=== PATIENT | female | born 1945 | race Caucasian/White ===

== ENCOUNTER 2023-10-23 18:30 | Emergency (ER) | payer MEDICARE, SELFPAY ==
[2023-10-23] VITALS (7 sets, daily range): BP systolic 131–159; BP diastolic 63–86; BMI 20.3
[2023-10-23 18:54] LABS: % Basophils 0.7 % (0-2); % Eosinophils 2.7 % (0-6); % Immature Granulocytes 0.1 % (0-0.5); % Lymphocytes 29.5 % (20.5-51.1); % Monocytes 6.8 % (1.7-9.3); % Neutrophils 60.2 % (42.2-75.2); Absolute Basophils 0.1 10^3/uL (0-0.2); Absolute Eosinophils 0.2 10^3/uL (0-0.7); Absolute Lymphocytes 2.5 10^3/uL (1.2-3.4); Absolute Monocytes 0.6 10^3/uL (0.1-0.6); Absolute Neutrophils 5.1 10^3/uL (1.4-6.5); Hematocrit 35.5 % (37.0-47.0); Hemoglobin 11.4 g/dL (12.0-16.0); Mean Corp Hgb Conc. 32.1 g/dL (33.0-37.0); Mean Corpuscular Hgb 28.7 pg (27.0-31.0); Mean Corpuscular Volume 89.4 fL (81.0-99.0); Mean Platelet Volume 9.3 fL (7.4-10.4); Nucleated Red Blood Cells % 0 %; Platelet Count 288 10^3/uL (130-400); Red Blood Cell Count 3.97 10^6/uL (4.20-5.40); Red Cell Dist. Width 16.7 % (11.5-14.5); White Blood Cell Count 8.4 10^3/uL (4.8-10.8)
--- NOTE | 2023-10-23 19:06 | ED.GENMED ---
History of Present Illness
General
Chief Complaint: Change Level of Consciousness
Source: patient
Exam Limitations: none
Time Seen by Provider: 10/23/23 18:34
Nursing documentation reviewed up to this point in time: agreed with
Travel History
Have you had any contact with someone who has COVID-19?: No
Do you have any symptoms of coronavirus? Fever > 100 degrees, chills, cough, shortness of breath, sore throat, loss of taste or smell, muscle aches, or headache?: No
History of Present Illness
History of Present Illness:
77year-old female from [facility], she was in the dinner line standing or it was hot felt flushed and hot passed out struck her head aids took her to her room she is passed out again, no chest pain or shortness of breath, no abdominal pain no
nausea no vomiting no diarrhea, she states she has passed out previously due to low blood pressure, she did strike her head, no alcohol use no blood thinners
Past History
Past History
ED Past Medical History: HTN and Hypothyroidism
ED Past Surgical History: Orthopedic
Social History
Tobacco: Non-smoker
Alcohol: None
Drug: None
Living: assisted living
Employment: Retired
Review of Systems
Review of Systems
All Other Systems: Not applicable
Constitutional: Denies fever
EENT: Reports no symptoms
Respiratory: Reports no symptoms
Cardiac: Reports syncope
ABD/GI: Reports no symptoms
: Reports no symptoms
Musculoskeletal: Reports no symptoms
Phy Exam
Physical Exam
Physical Exam:
Physical Exam
General: no apparent distress, not acutely ill
Neck: No posterior neck pain no tongue bite
Heart: s1/s2 regular rate and rhythm, no murmur. equal radial pulses.
Lungs: no acute respiratory distress. clear bilaterally
Abdomen: Not tender
Neuro: alert and oriented. no focal neurological deficits
Skin: no rash
Psychiatric: well kept. interactive and cooperative
Extremities: No edema no signs of extremity trauma
Course
Orders/Labs/Results
Orders:
Orders
10/23/23 18:38
Electrocardiogram (*1) Urgent
Reason for Study: Syncope
10/23/23 18:39
EKG- Treatment ONCE
10/23/23 18:41
Cardiac Monitoring- Treatment ONCE
CMP [Comprehensive Metabolic Panel] Urgent
Complete Blood Count/With Diff Urgent
10/23/23 18:42
CT Cervical Spine W/o Iv Contr Urgent
Comment:
Reason For Exam: fall
CT Head W/o Iv Contrast Urgent
Comment:
Reason For Exam: fall
10/23/23 19:09
Electrocardiogram (*1) Urgent
Reason for Study: QTc Monitoring
EKG- Treatment ONCE
10/23/23 20:30
0.9% Sodium Chloride 1000 ml [Nss] 1,000 ml IV BOLUS
Abnormal Lab Results
10/23/23
18:41
RBC 3.97 L 10^6/uL
(4.20-5.40)
Hgb 11.4 L g/dL
(12.0-16.0)
Hct 35.5 L %
(37.0-47.0)
MCHC 32.1 L g/dL
(33.0-37.0)
RDW 16.7 H %
(11.5-14.5)
Chloride 110 H mmol/L
(98-107)
Carbon Dioxide 18 L mmol/L
(22-30)
BUN 38 H mg/dl
(7-17)
Creatinine 1.6 H mg/dL
(0.6-1.0)
Glucose 112 H mg/dl
(70-99)
10/23/23 18:41
10/23/23 18:41
Vital Signs
Initial and Last Documented VS:
Initial Vital Signs
Temp Pulse Resp BP Pulse Ox
98.4 F 75 18 131/67 97
10/23/23 18:32 10/23/23 18:32 10/23/23 18:32 10/23/23 18:32 10/23/23 18:32
Last Documented Vital Signs
Temp Pulse Resp BP Pulse Ox
98.4 F 67 16 133/70 95
10/23/23 18:32 10/23/23 20:45 10/23/23 20:45 10/23/23 20:00 10/23/23 20:45
MDM/Problems Addressed
Differential Diagnosis Includes:
Orthostasis vasovagal arrhythmia electrolyte abnormality
MDM/Problems Addressed:
Syncope
Chronic conditions affecting care: HTN
Acute Exacerbation and/or Progression of Chronic Illness: HTN
*Radiology
Radiology exam reviewed: preliminary read by ED provider
*Pulse Oximetry
Patient hypoxic: no
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
Rate: normal
Interpretation: normal
Heart Rate: 78
Rhythm: sinus
*Critical Care Note
Total Time (30-74mins, 75-104mins- exclusive of procedures): Not Applicable
Update Note
Update Note:
9 PM update patient feeling better ambulating without difficulty labs are noted received a full liter saline, will check orthostatics
10:30 PM imaging noted
ED Attending Note
-
Portions of this chart may have been created with voice recognition software.� Occasional wrong word or��sound alike� substitutions may have occurred due to the inherent limitations of voice recognition software.
Discharge Plan
Departure
Patient Disposition: Home (Routine Discharge)
Date of Disposition: 10/23/23
Time of Disposition: 22:24
Patient with high blood pressure during this ER visit?: No
Condition: Good
Covid-19: Not Applicable
Discharge Problem:
Syncope and collapse
Instructions: Syncope (Fainting) (DC)
Prescriptions:
No Action
paroxetine HCl [Paxil] 10 mg Tablet
10 mg PO DAILY
alendronate 70 mg Tablet
70 mg PO DAILY
Rx Instructions:
30 minutes before first food, beverage, or medicine of the day
zolpidem 10 mg Tablet
10 mg PO HS
losartan-hydrochlorothiazide 50-12.5 mg Tablet
1 tab PO DAILY
Referrals:
Kem Swann MD [Family Provider] - Next open appointment
Activity Restrictions/Additional Instructions:
Drink plenty of fluids follow-up with your primary care provider
Interventions
Interventions:
*Risk Screen - Suicide Last Done: 10/23/23 18:32
*General Assessment Last Done: 10/23/23 18:32
*Neglect/Abuse Screening Last Done: 10/23/23 18:32
*ED COVID-19 Vaccine History Last Done: 10/23/23 18:32
ED- Cardiac Assessment Last Done: 10/23/23 18:32
ED- Neurological Assessment Last Done: 10/23/23 18:32
ED-Psychological Assessment Last Done: 10/23/23 18:32
ED- Pulmonary Assessment Last Done: 10/23/23 18:32
[2023-10-23 19:10] LABS: ALT (SGPT) 27 U/L (0-35); AST (SGOT) 31 U/L (14-36); Albumin 4.3 g/dl (3.5-5.0); Alkaline Phosphatase 61 U/L (38-126); Blood Urea Nitrogen 38 mg/dl (7-17); Carbon Dioxide 18 mmol/L (22-30); Chloride 110 mmol/L (98-107); Estimated Creatinine Clearance 27 ml/min; Glucose 112 mg/dl (70-99); Sodium 136 mmol/L (135-145); Total Bilirubin 0.4 mg/dl (0.2-1.3); Total Protein 7.2 g/dl (6.3-8.2); eGFR 32.81
[2023-10-23] MEDS: NSS 1000 IV (20:36)
[2023-10-24] VITALS: BP 159/75
== END 2023-10-24 00:57 | disposition home or self-care (01) ==
LOC: EMR 18:30
PROVIDERS: EMERGENCY PHYSICIAN Emergency Medicine; FAMILY PHYSICIAN Internal Medicine Pulmonary Disease
DX: R55 Syncope and collapse (principal); E03.9 Hypothyroidism, unspecified; I10 Essential (primary) hypertension
CPT/HCPCS: 99284; 96360; 70450; 72125; 80053; 85025; 93005